=== PATIENT | female | born 1990 | race Caucasian/White ===

== ENCOUNTER 2019-04-14 00:38 | Day surgery (SDC) | payer OTHER, SELFPAY ==
[2019-04-06 10:46] VITALS: BMI 23.1
--- NOTE | 2019-04-11 15:14 | P.HP_ITS ---
H&P: HPI History of Present Illness Chief complaint: Right Ovarian Cyst/ Pelvic Pain Narrative: Sherry Bernard is a [address] P2 002 status post hysterectomy is admitted for laparoscopic right salpingo- oophorectomy. She has had chronic right-sided pain. She has an ultrasound shows a complex right ovarian cyst. Risks and benefits reviewed in full. Sh Review of Systems Review of Systems: All systems reviewed & are unremarkable except as noted in HPI and below Meds Home Medications and Allergies Home Medications Medication Instructions Recorded Confirmed Type alprazolam [Xanax] 1 mg PO DAILY 04/06/19 04/06/19 History hydrocodone-acetaminophen 1 tablet PO Q6H PRN 04/06/19 04/06/19 History levothyroxine 75 mcg PO DAILY 04/06/19 04/06/19 History zolpidem [Ambien] 10 mg PO HS 04/06/19 04/06/19 History Allergies Allergy/AdvReac Type Severity Reaction Status Date / Time morphine AdvReac SEVERE Verified 04/07/19 09:11 HEADACHE Exam Const: General: no acute distress Eyes: General: appearance normal, both eyes and all related structures Neck: Neck: supple and no JVD Thyroid: thyroid normal Resp: Effort & Inspection: normal respiratory effort Auscultation: clear to auscultation bilaterally Cardio: Rate: regular rate Rhythm: regular rhythm GI: Inspection: non-distended GI Palp: Yes Soft to palpation, No Tenderness to palpation present (GI) and No Guarding due to palpation present (GI) Auscultation: normal bowel sounds : External Female Exam: normal external appearance Speculum Exam - Vagina: other (cx absent) Speculum Exam - Cervix: Cervix absent Bimanual exam- vagina & uterus: uterus absent Bimanual Exam- Adnexa, other: tender (right greater than left) Skin: General skin exam: no rashes or lesions noted Extrem: General: normal to inspection and no edema Psych: Mental Status: mental status grossly normal Affect: normal affect Assessment and Plan Additional Plan impression: Chronic pain and right-sided ovarian cyst Plan: Laparoscopic right salpingo-oophorectomy
[2019-04-14] VITALS (10 sets, daily range): BP systolic 88–136; BP diastolic 49–87; PULSE 63–78; RESP 13–18; TEMP 36.2–36.5; O2SAT 93–100
[2019-04-14] MEDS: LACTATED RINGERS 1,000 ML 30 ML IV CONT ×2 (06:05→08:17)
--- NOTE | 2019-04-14 06:38 | P.PNAN_ITS ---
Anes - Initial Pre Proc Eval Procedure: Operation Date: 04/14/19 07:30 Proposed Procedures p Laparoscopic Right Salpingo-Oophorectomy - Dayron Bradshaw MD Date/Time: 04/14/19 06:38 Surgeon: Dayron Bradshaw MD Pre Op Diagnosis: Right Ovarian Cyst/ Pelvic Pain Patient Data Age: 29 Gender: F Height: 1.7 m Weight: 67.13 kg Allergies Allergy/AdvReac Type Severity Reaction Status Date / Time morphine AdvReac SEVERE Verified 04/07/19 09:11 HEADACHE Home Medications Medication Instructions Recorded Confirmed Type alprazolam [Xanax] 1 mg PO DAILY 04/06/19 04/06/19 History hydrocodone-acetaminophen 1 tablet PO Q6H PRN 04/06/19 04/06/19 History levothyroxine 75 mcg PO DAILY 04/06/19 04/06/19 History zolpidem [Ambien] 10 mg PO HS 04/06/19 04/06/19 History Patient hx anesthesia problems: none Family hx anesthesia problems: none [facility] Past Medical History Medical History (Updated 04/13/19 @ 08:46 by Niles Camp DO) Anxiety Hypothyroidism Nguyen's Surgical History Surgical History (Updated 04/13/19 @ 08:46 by Niles Camp DO) History of cholecystectomy History of hysterectomy Anes - Eval Final PreProcedure Day of Procedure 04/14/19 06:38 Patient weight: normal Heart: regular rate and rhythm Lungs: clear to auscultation and normal air movement Airway: Mallampati scale class II Neurological: alert and oriented Last oral intake: >/= 8 hours ASA classification: II Emergent: no Anesthetic plan: proceed Anesthesia type and monitoring: general ETT and standard monitoring Informed Consent: The patient's anesthetic plan and its attendant risks and benefits were discussed with the patient/family/POA. Questions were solicited and answers provided to the satisfaction of the patient/family/POA.
--- NOTE | 2019-04-14 06:58 | WPDHPUPDATE1 ---
History and Physical Update Update Date/Time: 04/14/19 06:58 History and Physical has been reviewed, including an updated exam of the patient. There are NO changes in the patient's condition. Risks, benefits, and alternatives have been discussed and questions answered. Patient agrees to proceed with procedure.
[2019-04-14] MEDS: KETOROLAC 30 MG/ML VIAL (*BKC) IV PUSH (08:07)
--- NOTE | 2019-04-14 08:09 | P.OP_ITS ---
Procedure Note - Detailed Date of procedure: 04/14/19 Pre-op diagnosis: Right Ovarian Cyst/ Pelvic Pain Surgeon: Dayron Bradshaw MD Postop diagnosis: Right ovarian cyst/pelvic pain/pelvic adhesions Procedure: Laparoscopy with right oophorectomy and lysis of adhesions EBL: 5cc Complications: None Findings: Absent uterus and tubes moderate size right ovarian cyst. Normal appearing left ovary. Adhesions in the right lower quadrant Description of procedure: Patient was prepped and draped in the normal sterile fashion and placed in the dorsal lithotomy position under excellent general trachea anesthesia weighted speculum was placed in post 4 fornix of the vagina. A sponge stick was placed. The bladder was draining clear urine. Weighted speculum was removed. The gloves were changed An infraumbilical incision was made and the Veress needle passed in the abdomen. Abdomen was filled with CO2 gas [id number]. The 5mm trocar was advanced in the abdomen under direct visualization assuring no injury. Patient placed in Trendelenburg and a 5mm trocar advanced in the suprapubic area under direct vi sualization assuring no injury. A right lower quadrant incision made and the 5m suprapubic incision. M trocar advanced under direct visualization assuring no injury. Multiple adhesions were seen in the right lower quadrant these were sharply dissected until the area was clear irrigation was then undertaken. The 5mm LigaSure was then placed over the infundibulopelvic structure clamped, burned, cut. The ovary was then brought in piecemeal through the 5mm trocar. The gas was removed from the abdomen. The incisions were closed with 4 O Monocryl and glue. The instruments removed from the vagina. The patient was awakened. All sponge, needle, instrument counts were correct. There were no immediate complications
[2019-04-14] MEDS: HYDROMORPHONE HCL 1 MG/ML INJ 0.5 MG IV PUSH ×2 (08:30→08:41)
--- NOTE | 2019-04-14 09:33 | SUR.PHASEI ---
0930 updated mother in waiting room.
== END 2019-04-14 10:50 | disposition home or self-care (01) ==
PROVIDERS: PCP Physician Assistant; Visit Provider Obstetrics & Gynecology
PROC: (CPT 49320; principal; 2019-04-14 07:30)
DX: N83.201 Unspecified ovarian cyst, right side (principal); N73.6 Female pelvic peritoneal adhesions (postinfective); R10.2 Pelvic and perineal pain; E06.3 Autoimmune thyroiditis; F41.9 Anxiety disorder, unspecified
CPT/HCPCS: 58661; 36415; 86850; 86900; 86901; 88305; A9270; J0330; J1100; J1170; J1885; J2250; J2405; J2704; J3010; J7030; J7120

== ENCOUNTER 2020-11-17 22:04 | Emergency (ER) | payer OTHER, SELFPAY ==
[2020-11-17 22:07] VITALS: BP 136/86; PULSE 101; RESP 20; TEMP 36.7; O2SAT 99
--- NOTE | 2020-11-17 22:18 | PC.NURSE ---
Pt marked border of affected area yesterday at approx 1900. Erythema has not spread past border previously marked.
--- NOTE | 2020-11-17 22:36 | ED.WOUNDLAC ---
HPI - Wound/Laceration General Chief Complaint: Wound/Laceration Stated Complaint: Brown recluse bite Time Seen by Provider: 11/17/20 22:22 Source: patient Mode of arrival: ambulatory Limitations: no limitations History of Present Illness HPI narrative: This is a 30 year old female who presents for evaluation of left arm wound. Patient woke up yesterday morning with left upper arm with 2 small blisters. She is concerned it may be a brown recluse bite. Today she states she is been sleeping alot and she has more soreness to her left upper arm. She denies fever, chills, nausea or vomiting. Related Data Home Medications Medication Instructions Recorded Confirmed alprazolam [Xanax] 1 mg PO DAILY 04/06/19 04/14/19 hydrocodone-acetaminophen 1 tablet PO Q6H PRN 04/06/19 04/14/19 levothyroxine 75 mcg PO DAILY 04/06/19 04/14/19 zolpidem [Ambien] 10 mg PO HS 04/06/19 04/14/19 Allergies Allergy/AdvReac Type Severity Reaction Status Date / Time morphine AdvReac SEVERE Verified 11/17/20 22:54 HEADACHE Review of Systems Review of Systems: All systems reviewed & are unremarkable except as noted in HPI and below PMFSH Past Medical History Medical History (Updated 11/17/20 @ 22:44 by Rachele Marley MD) Anxiety Hypothyroidism Nguyen's Surgical History Surgical History (Updated 04/13/19 @ 08:46 by Niles Camp DO) History of cholecystectomy History of hysterectomy Exam Const: General: no acute distress and alert Orientation/consciousness: patient oriented x3 Eyes: EOM: EOMs intact bilaterally Resp: Effort & Inspection: normal respiratory effort Neuro: General: patient oriented x3 and moves all extremities Extrem: Other: FROM extremities- left upper arm with 1.5 cm intact blister with surround induration with mild erythema, no drainage. Psych: Mental Status: mental status grossly normal Course Reevaluation(s) Reevaluation #1: I discussed with patient discharge plan. It appears to be bite of some sort but unable to state specifically a brown recluse. She was given return precautions, what to watch for. Date: 11/17/20 Time: 22:41 Vital Signs Vital signs: Vital Signs Temperature 98.1 F 11/17/20 22:07 Pulse Rate 101 H 11/17/20 22:07 Respiratory Rate 20 11/17/20 22:07 Blood Pressure 136/86 11/17/20 22:07 Pulse Oximetry 99 11/17/20 22:07 Temperature 98.1 F 11/17/20 22:07 Pulse Rate 101 H 11/17/20 22:07 Respiratory Rate 20 11/17/20 22:07 Blood Pressure 136/86 11/17/20 22:07 Pulse Oximetry 99 11/17/20 22:07 Discharge Plan Discharge Clinical Impression: Blister (nonthermal) of left upper arm, initial encounter Patient Disposition: Home, Self-Care Condition: Stable Instructions: Antibiotic Form, Insect Bite or Sting (ED), Blister (ED) Additional Instructions: Please read your discharge instructions that were provided. Your symptoms are more from inflammation than infection but watch for pus drainage, fever, increased redness. Prescriptions: New cephalexin 500 mg capsule 500 mg PO Q6H 7 Days Qty: 28 RF: 0 No Action alprazolam [Xanax] 1 mg Tablet 1 mg PO DAILY RF: 0 levothyroxine 75 mcg Tablet 75 mcg PO DAILY RF: 0 hydrocodone-acetaminophen 7.5-325 mg tablet 1 tablet PO Q6H PRN (Reason: Pain) RF: 0 zolpidem [Ambien] 10 mg Tablet 10 mg PO HS RF: 0 oxycodone-acetaminophen [Percocet] 5-325 mg tablet 1 tablet PO Q4H PRN (Reason: pain) Qty: 30 RF: 0 Follow-up/Referrals: PHYSICIAN NOT ON STAFF,NONSTAFF [Primary Care Provider] -
== END 2020-11-17 22:59 | disposition home or self-care (01) ==
PROVIDERS: Emergency Provider General Practice
DX: R23.8 Other skin changes (principal); F41.9 Anxiety disorder, unspecified; E06.3 Autoimmune thyroiditis; E03.9 Hypothyroidism, unspecified
CPT/HCPCS: 99283

== ENCOUNTER 2021-01-12 13:30 | Emergency (ER) | payer OTHER, SELFPAY ==
--- NOTE | ~2021-01-12 | CT_ITS ---
EXAMINATION: CT abdomen pelvis w con DATE: 01/12/2021 14:27 INDICATION: Right abdominal pain. Periumbilical abdominal pain. TECHNIQUE: Computed tomography (CT) of the abdomen and pelvis was performed with 100 mL Omnipaque 350 intravenous contrast. Automated exposure control and iterative reconstruction technique were employe d. The dose-length product was 456.75 mGy-cm. COMPARISON: CT abdomen and pelvis 09/29/2017 FINDINGS: The visualized portions of the lung bases demonstrate mild atelectasis. No pleural effusion . The heart size is normal. No pericardial effusion. The liver and spleen are normal. There are cordero es of cholecystectomy. The pancreas, adrenal glands, and kidneys are normal. There are no dilated loo ps of bowel. The appendix is normal. There is a small umbilical hernia containing fat. There is a sup raumbilical ventral hernia containing fat. There are no pathologically enlarged lymph nodes. There is physiologic fluid in the pelvis. There is mild lumbar spondylosis. IMPRESSION: 1. Supraumbilical and umbilical hernias containing fat. Reviewed, dictated and finalized at location A. [employer]
[2021-01-12 13:34] VITALS: BP 132/91; PULSE 107; RESP 20; TEMP 36.4; O2SAT 100
[2021-01-12 13:55] LABS: Add Urine Microscopic? YES; Appearance Urine Cloudy (Clear); Bacteria Urine Trace /hpf; Bilirubin Urine Negative (Negative); Blood Urine Negative (Negative); Color Urine Yellow (Yellow); Glucose Urine UA Negative (Negative); Ketones Urine Negative (Negative); Leukocyte Esterase Ur Negative LEU/UL (Negative); Mucus Urine Rare /lpf; Nitrate Urine Positive (Negative); Protein Urine Negative (Negative); Specific Grav Ur 1.015 (1.001-1.035); Squamous Epithelial Cell Urine Many /hpf (Few); Urobilinogen Urine Negative mg/dL (<2.0); WBC Urine 0-3 /hpf
[2021-01-12 13:58] LABS: Basophils Absolute Auto 0.1 K/mm3 (0.0-0.1); Basophils Percent Auto 0.9 % (0.2-1.2); Eosinophils Absolute Auto 0.3 K/mm3 (0-0.3); Hematocrit 44.1 % (37.0-47.0); Hemoglobin 15.4 g/dL (12.0-15.0); Immature Granulocyte Absolute 0.03 K/mm3 (0.00-0.031); Immature Granulocyte Percent A 0.3 % (0-0.5); Lymphocytes Absolute Auto 2.88 K/mm3 (0.9-3.2); Mean Corpuscular HGB Conc 34.9 g/dl (32-36); Mean Corpuscular Hemoglobin 32.4 pg (26-34); Mean Corpuscular Volume 92.6 fl (80-100); Mean Platelet Volume 10.1 fl (7.4-10.4); Monocytes Absolute Auto 0.6 K/mm3 (0.1-0.6); Monocytes Percent Auto 7.2 % (2.6-8.5); Neutrophils Absolute Auto 4.9 K/mm3 (1.3-6.7); Neutrophils Percent Auto 55.6 % (45.5-73.1); Platelet Count Result 231 k/mm3 (150-375); Red Blood Count 4.76 M/mm3 (4.2-5.4); Red Cell Distribution Width 11.6 % (11.5-14.5); White Blood Count 8.7 K/mm3 (4.5-10.0)
[2021-01-12] MEDS: SODIUM CHLORIDE 0.9% IV 1,000 ML 999 ML IV CONT (14:07)
[2021-01-12 14:09] LABS: Alanine Aminotransferase 17 U/L (4-35); Albumin Level 4.8 g/dL (3.5-5.1); Alkaline Phosphatase 43 U/L (38-126); Anion Gap 10 mmol/L (8-16); Aspartate Amino Transferase 26 U/L (14-36); Bilirubin,Total 0.5 mg/dL (0.2-1.3); Blood Urea Nitrogen 16 mg/dL (7-17); Calcium 9.4 mg/dL (8.4-10.2); Carbon Dioxide 25 mmol/L (22-30); Chloride 103 mmol/L (98-107); Estimated CRCL calculation 87 ml/min; Estimated Glomerular Filt Rate > 60; Glucose 100 mg/dL (65-110); Lipase 71 U/L (23-300); Potassium 3.7 mmol/L (3.4-5.0); Sodium 138 mmol/L (137-145)
[2021-01-12] MEDS: MORPHINE SULFATE (*CRX) 4 MG/ML INJ IV PUSH ×2 (14:51→15:36)
[2021-01-12] MEDS: KETOROLAC 15 MG/ML VIAL (*BKC) IV PUSH (14:55)
--- NOTE | 2021-01-12 15:19 | ED.ABDPAIN ---
HPI - Abdominal Pain General Chief Complaint: Abdominal Pain Stated Complaint: abd pain Time Seen by Provider: 01/12/21 13:38 Source: patient History of Present Illness HPI narrative: Patient presents with periumbilical abdominal pain. Reports symptoms started last night progressively worse so she came to the ER for evaluation she denies nausea vomiting diarrhea. Pain is sharp, constant, worsened by any sort of movement, now radiates to the right side of her abdomen. She denies any fevers cough congestion no chest pain or shortness of breath. Reports prior hysterectomy and right oophorectomy she also has prior cholecystectomy Related Data Home Medications Medication Instructions Recorded Confirmed alprazolam [Xanax] 1 mg PO DAILY 04/06/19 04/14/19 hydrocodone-acetaminophen 1 tablet PO Q6H PRN 04/06/19 04/14/19 levothyroxine 75 mcg PO DAILY 04/06/19 04/14/19 zolpidem [Ambien] 10 mg PO HS 04/06/19 04/14/19 Allergies Allergy/AdvReac Type Severity Reaction Status Date / Time No Known Allergies Allergy Verified 01/12/21 14:48 Review of Systems Review of Systems: CONSTITUTIONAL: Denies fever, chills, or sweats. EYES: Denies visual changes, redness, or discharge. ENT: Denies rhinorrhea, congestion, sore throat, or otalgia. CARDIOVASCULAR: Denies chest pain, palpitations, or edema. RESPIRATORY: Denies cough or dyspnea. GASTROINTESTINAL: Denies nausea, vomiting, or diarrhea. GENITOURINARY: Denies dysuria or hematuria. SKIN: Denies rash or itching. MUSCULOSKELETAL: Denies back pain, joint pain, or myalgia. NEUROLOGIC: Denies headache, numbness, dizziness, or weakness. PSYCHIATRIC: Denies anxiety or depression. All systems reviewed & are unremarkable except as noted in HPI and below PMFSH Past Medical History Medical History Anxiety Hypothyroidism Nguyen's Surgical History Surgical History History of cholecystectomy History of hysterectomy Exam Narrative: GENERAL: Well-appearing, well-nourished, and in no acute distress. HEAD: Normocephalic, atraumatic. EYES: PERRLA and EOMI. ENT: Nares clear, no rhinorrhea or epistaxis. Mucous membranes moist. NECK: Supple. No masses. No JVD CHEST: Clear to auscultation. No respiratory distress. No wheezes rales or rhonchi HEART: Regular rate and rhythm. No murmur heard. Normal peripheral pulses. ABDOMEN: Moderate tenderness with palpation around the umbilicus soft, nondistended. EXTREMITIES: Normal range of motion. No edema. SKIN: Warm, dry, no rash. NEURO: No focal deficits. Alert and oriented x3. PSYCH: Normal mood and affect. Course Reevaluation(s) Reevaluation #1: Results reviewed with patient. Patient reports he continues to have pain pain likely related to fat-containing hernia we will continue attempts at pain control anticipate patient is appropriate for outpatient supportive therapies and follow-up with surgery Date: 01/12/21 Time: 16:22 Vital Signs Vital signs: Vital Signs Temperature 36.4 C L 01/12/21 13:34 Pulse Rate 107 H 01/12/21 13:34 Respiratory Rate 20 01/12/21 13:34 Blood Pressure 132/91 H 01/12/21 13:34 Pulse Oximetry 100 01/12/21 13:34 Temperature 36.4 C L 01/12/21 13:34 Pulse Rate 66 01/12/21 16:40 Respiratory Rate 18 01/12/21 16:40 Blood Pressure 108/57 L 01/12/21 16:40 Pulse Oximetry 99 01/12/21 16:40 MDM - Abdominal Pain MDM Narrative Medical decision making narrative: H&P as above, vss, pt looks clinically well, exam abdominal pain, labs UA with possible infection, img with umbilical hernia, additional labs/img considered, symptomatic relief available as needed, patient given fluids and pain medication on reevaluation pt continues to looks clinically well she had some improvement in pain. Suspect umbilical hernia, dns perforation, appendicitis, severe sepsis. Given patient's improvement she is ap
[2021-01-12 15:38] VITALS: BP 111/75; PULSE 83; RESP 18; O2SAT 100
[2021-01-12 15:41] LABS: Lactic Acid Reflex 1.2 mmol/L (0.7-2.1)
[2021-01-12] MEDS: HYDROmorphone HCL INJ (*CRX) 1 MG/ML SYR 0.5 MG IV PUSH (16:08)
[2021-01-12 16:40] VITALS: BP 108/57; PULSE 66; RESP 18; O2SAT 99
== END 2021-01-12 16:41 | disposition home or self-care (01) ==
PROVIDERS: Emergency Provider Emergency Medicine
DX: K42.9 Umbilical hernia without obstruction or gangrene (principal); N39.0 Urinary tract infection, site not specified; F41.9 Anxiety disorder, unspecified; E06.3 Autoimmune thyroiditis
CPT/HCPCS: 36415; 74177; 80053; 81001; 83605; 83690; 85025; 96361; 96365; 96375; 96376; 99284; J0131; J1170; J1885; J2270; J7030; Q9967

== ENCOUNTER 2021-01-17 02:06 | Day surgery (SDC) | payer OTHER, SELFPAY ==
[2021-01-14 12:45] VITALS: BMI 22.5
--- NOTE | 2021-01-14 12:56 | PC.NURSE ---
Report to the Outpatient Waiting Room, entrance under the green pavilion located off [facility], at time 1230 on date 01/17/21. OR Time: 1430. - You and your visitor will be asked a series of questions to screen for COVID 19 for your protection. - A mask is required within the hospital. - Only one visitor is allowed at this time. Patient visitors will be guided where to wait when not with patient. Preoperative COVID Testing Requirements: No COVID Test needed if: (proof is required; if not received patient will have Rapid Test prior to entry) - Patient has received COVID Vaccine at least 14 days prior to procedure date or - Patient has positive COVID test result within last 90 days of surgery date. COVID Test needed if above criteria is not met If not COVID vaccinated a COVID test must be conducted within 72 hours of surgery and patient is asked to isolate self from time of testing until procedure. You will go to the [facility] for your COVID testing. The [facility] site is located at the corner of [address] [facility]. You will only be called if COVID results are positive and your surgeon may reschedule your elective surgery date. Patients may have clear liquids (water, carbonated beverages, clear teas, apple juice) until 3 hours prior to surgery with a maximum of 20 ounces. - No food from midnight until time of surgery - Infants may have breast milk until 4 hours before surgery, infant formula 6 hours prior to surgery. - Children will be allowed to drink immediately following surgery. If applicable, please bring a bottle or sippy cup to assist with drinking. Juice, water, soda, and popsicles are readily available. For infants on formula, please bring formula the day of surgery. Pacifiers are allowed. Take the following medications with a SIP of water the morning of surgery: XANAX (IF NEEDED), PAIN PILL (IF NEEDED), LEVOTHYROXINE Medications to discontinue per physician: N/A Date to take last dose: N/A Please no make-up, nail latvian, hairspray, perfume, deodorant, or body powder the day of surgery. No jewelry (including any body piercings) or valuables the day of surgery, leave them at home. Please take a shower or bath the night before, or the morning of, surgery with an antibacterial soap. Wear comfortable, loose fitting clothing. Children are encouraged to wear pajamas. - Jewelry must be removed prior to entering the operating room. Rings and piercings that are not removed may be cut off. - The hospital will not accept responsibility for valuables. - Please leave all valuables, including medications, at home the day of surgery. If you are going home after surgery, a licensed escort vehicle driver must drive you home. - NO public transportation without another adult. - We recommend that an adult stay with you for 24 hours following discharge. - We also recommend that you do not drive, make important decision, drink alcoholic beverages, or take any drugs that were not prescribed by your health care provider for at least 24 hours after your discharge time. For Pediatric surgeries, we recommend two adults accompany the child home (only one inside the building at this time). Follow any additional instructions given to you from your surgeon. Telephone instructions given to SHAYLA STEPHENS and asked if any additional questions and then verbalized understanding. Patient advised to call surgeon office or pre surgery nurse liaison [phone] if any additional questions.
[2021-01-17] VITALS (10 sets, daily range): BP systolic 98–127; BP diastolic 58–94; PULSE 59–90; RESP 12–16; TEMP 36.5; O2SAT 92–100
[2021-01-17] MEDS: LACTATED RINGERS 1,000 ML 30 ML IV CONT ×2 (13:09→15:52)
[2021-01-17] MEDS: ACETAMINOPHEN 500 MG TABLET 1000 MG PO (13:10)
[2021-01-17] MEDS: KETOROLAC 15 MG/ML VIAL (*BKC) IV PUSH (13:11)
--- NOTE | 2021-01-17 13:56 | P.PNAN_ITS ---
Anes - Initial Pre Proc Eval Procedure: Operation Date: 01/17/21 14:30 Proposed Procedures p Open Incarcerated Incisional Hernia Repair - uRiz Cassidy DO Date/Time: 01/17/21 13:56 Surgeon: Ruiz Cassidy DO Pre Op Diagnosis: incarcerated incisional hernia Patient Data Age: 30 Gender: F Height: 1.7 m Weight: 66.4 kg Last Vital Signs Temp 36.5 C 01/17/21 12:35 Pulse 90 01/17/21 12:35 Resp 16 01/17/21 12:35 BP 127/94 H 01/17/21 12:35 Pulse Ox 100 01/17/21 12:35 Allergies Allergy/AdvReac Type Severity Reaction Status Date / Time morphine AdvReac Headache Verified 01/17/21 12:52 Home Medications Medication Instructions Recorded Confirmed Type alprazolam [Xanax] 1 mg PO TID PRN 04/06/19 01/17/21 History levothyroxine 75 mcg PO DAILY 04/06/19 01/17/21 History zolpidem [Ambien] 10 mg PO HS 04/06/19 01/17/21 History hydrocodone-acetaminophen [Addison] 1 tablet PO Q6H PRN 01/14/21 01/14/21 History oxycodone-acetaminophen 5 mg-325 1 tablet PO Q4H PRN #15 tablet 01/15/21 01/15/21 Rx mg tablet Patient hx anesthesia problems: none Family hx anesthesia problems: none Results Review: All pre-operative results and documents have been reviewed as part of the pre-operative evaluation. [facility] Past Medical History Medical History Anxiety Hypothyroidism Nguyen's Surgical History Surgical History History of cholecystectomy History of hysterectomy History of right oophorectomy Family History Family History Father Suicide Mother Hypothyroid Cervical atypia Cerebrovascular accident Sibling Asperger syndrome Grandparent Breast cancer Social History Social History Smoking packs per day: 0.5 Smoking cigarettes per day: 10.0 Years smoked: 10 Smoking pack-years: 5.00 Smoking status: Current every day smoker Tobacco type: cigarettes Alcohol intake: current Alcohol use details: 5/MONTH Substance use: never Substance use type: does not use Living arrangements: with family Spiritual care concerns: No Anes - Eval Final PreProcedure Day of Procedure 01/17/21 13:56 Patient weight: normal Heart: regular rate and rhythm Lungs: clear to auscultation Airway: Mallampati scale class II Neurological: alert and oriented Last oral intake: >/= 8 hours ASA classification: II Emergent: no Anesthetic plan: proceed Anesthesia type and monitoring: general ETT and standard monitoring Results Review: All pre-operative results and documents have been reviewed as part of the pre-operative evaluation. Informed Consent: The patient's anesthetic plan and its attendant risks and benefits were discussed with the patient/family/POA. Questions were solicited and answers provided to the satisfaction of the patient/family/POA.
--- NOTE | 2021-01-17 14:14 | WPDHPUPDATE1 ---
History and Physical Update Update Date/Time: 01/17/21 14:14 History and Physical has been reviewed, including an updated exam of the patient. There are NO changes in the patient's condition. Risks, benefits, and alternatives have been discussed and questions answered. Patient agrees to proceed with procedure.
[2021-01-17] MEDS: ceFAZolin 2 GM/D5W 50 ML 2 GM/50 ML BAG IVPB (14:26)
[2021-01-17] MEDS: BUPIVACAINE HCL 0.5% PF 30 ML VIAL INFILTRATE (14:32)
--- NOTE | 2021-01-17 15:19 | W.PM.PROC2 ---
Procedure Note - Detailed Date of Procedure 01/17/21 Pre-op Diagnosis incarcerated incisional hernia Post-op Diagnosis same Procedure Performed Incarcerated incisional hernia repair Surgeon Ruiz Cassidy, DO Anesthesia general and local (0.5% bupivacaine) Indications This is a 30-year-old woman who presented with an incarcerated incisional hernia. She presented to the emergency department on 01/12/2021 with upper abdominal pain that started the day before. CT in the emergency department showed evidence of an upper abdominal ventral hernia incarcerated with omentum. She was discharged home from the emergency department and followed up to see me in the office on 01/14/2021. She was having severe pain at that time and was not able to get comfortable enough to sleep. The hernia appeared to be incarcerated with omentum and was unable to be reduced. Discussions were made with the patient about treatment options and decision was made to proceed with urgent open incarcerated incisional hernia repair with possible mesh. Findings Incarcerated incisional hernia repair was performed. Patient was found to have an incarcerated hernia in her upper midline about 3-4 cm superior to the umbilicus. This was located at a scar from previous robotic and laparoscopic procedures. The hernia appeared to be incarcerated with omentum. The hernia sac and incarcerated omentum was excised and sent to the lab for pathology. The hernia defect only measured 3 mm wide. The fascia was cleared around the hernia defect and the fascia was then reapproximated using 0 Ethibond [id number] sutures. A total of 2 sutures were placed transversely to approximate the fascial edges. Description of Procedure Procedure as well as risks, benefits, and alternatives were discussed with the patient. Written consent was obtained and placed in chart prior to procedure. Patient was brought back to surgical suite. She was placed supine on operating table. Time-out was done to confirm patient and procedure. She was then intubated by the anesthesia department. Her abdomen was prepped and draped in sterile fashion using chlorhexidine prep. A 3 cm transverse incision was made in the upper midline abdomen using a 15 blade scalpel. Electrocautery was used for hemostasis and for dissection down through the subcutaneous tissue. The hernia sac was encountered and was cleared with electrocautery all the way down to the level of the fascia. The hernia sac was then excised with electrocautery. The fascial edges were then identified and the hernia defect was measured. The hernia measured 3 mm. The hernia was then closed using 0 Ethibond [id number] sutures. A total of 2 sutures were placed transversely to approximate the fascia without too much tension. The sutures were tied down in place and the repair was then inspected and appeared secure. 0.5% bupivacaine with epinephrine was then infiltrated locally around the fascia and subcutaneous space. Saad's fascia was then reapproximated using 3-0 Vicryl simple interrupted sutures. The skin was then approximated using 4 Monocryl subcuticular suture. Exofin glue was then applied on top. The patient was then awakened from anesthesia, extubated, and transferred to recovery. Estimated Blood Loss 5 Pathology yes (Hernia sac) Complications No immediate complications Condition stable Disposition same day
[2021-01-17] MEDS: fentaNYL CITRATE INJ (*CRX) 100 MCG/2 ML VIAL 25 MCG IV PUSH ×8 (15:27→16:23)
[2021-01-17] MEDS: oxyCODONE HCL (*CRX) 5 MG TAB IR PO (16:54)
== END 2021-01-17 17:24 | disposition home or self-care (01) ==
PROVIDERS: PCP Physician Assistant; Visit Provider Surgery
PROC: 0WQF0ZZ Repair Abdominal Wall, Open Approach (ICD-10-PCS; CPT 49561; principal; 2021-01-17 14:30)
DX: K43.0 Incisional hernia with obstruction, without gangrene (principal); E03.9 Hypothyroidism, unspecified; F41.9 Anxiety disorder, unspecified; E06.3 Autoimmune thyroiditis; Z90.49 Acquired absence of other specified parts of digestive tract; F17.210 Nicotine dependence, cigarettes, uncomplicated
CPT/HCPCS: 49561; 88302; A9270; J0690; J1100; J1885; J2250; J2405; J2704; J3010; J7120

== ENCOUNTER 2022-06-22 12:17 | Outpatient (CLI) | payer OTHER, SELFPAY ==
--- NOTE | ~2022-06-22 | XR_ITS ---
EXAM: XR shoulder LT min 2V DATE: 06/22/2022 13:08 HISTORY: Unspecified injury of muscle(s) and tendon(s) of t . COMPARISON: None available. FINDINGS: Normal mineralization. No fracture or dislocation. No lytic or blastic lesion. Joint space s are maintained. No erosion or periosteal change. Soft tissues within normal limits. IMPRESSION: No acute osseous finding in the left shoulder. Reviewed, dictated and finalized at location K.
== END 2022-06-22 12:18 ==
PROVIDERS: PCP Physician Assistant; Visit Provider Physician Assistant
DX: M25.512 Pain in left shoulder (principal)
CPT/HCPCS: 73030